=== PATIENT | male | born 1950 | race Hispanic/Latino ===

== ENCOUNTER 2020-01-13 10:24 | Outpatient (CLI) | payer MEDICARE ==
[2020-01-13 11:26] LABS: Blood Urea Nitrogen 22 mg/dL (9-20)
--- NOTE | 2020-01-13 13:41 | Cat Scan Report ---
CT angio abd/femoral abd aorta INDICATION: I87.1Compression of vein. TECHNIQUE: All CT scans at this location are performed using the following dose modulation technique: Automated exposure control. Helical slices were obtained through the abdomen, pelvis, and lower extremities. COMPARISON: None available. FINDINGS: Aorta: The aorta is mildly tortuous. The common iliac arteries are prominent in size and tortuous. Th e right common iliac artery measures 15 mm and the left common iliac artery measures approximately 22 mm. No stenosis is seen in the aorta or iliac arteries. The iliac arteries are tortuous. The common femoral arteries are patent bilaterally. There is mild calcific plaque in both superficial femoral ar teries without hemodynamically significant stenosis. The popliteal arteries are patent. There is no i dentifiable filling of the runoff vessels in either lower extremity. There is calcific plaque through out the 3 runoff vessels bilaterally. Pelvic veins: There is no compression of the inferior vena cava or common iliac artery. The IVC measu res approximately 28 mm in AP dimension. The left common iliac vein measures 2 cm in the right common iliac vein measures 1.8 cm the external iliac arteries are not compressed. There is no extrinsic compression of the common femoral veins are superficial femoral veins. The timing of this study is 4 arterial flow and the venous structures are not opacified ABDOMEN: The imaged portion of the liver, spleen, pancreas, and adrenal glands show no acute abnormal ity. There is a cyst in the right lung with the liver. There is no adenopathy. No acute abnormality is seen in the kidneys or bowel. Pelvis: There are prostatic calcifications. There is no inflammatory change. On review of bone windows, no acute osseous abnormalities are seen. IMPRESSION: 1. 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 There is no extrinsic co mpression of the venous system. The common iliac arteries are dilated with measurements given above. There is tortuosity of the iliac arteries. Signer Name: Estiven Kingston MD Signed: 01/13/2020 1:36 PM Workstation Name: [id number]
== END 2020-01-13 10:25 | disposition home or self-care (01) ==
LOC: CT 10:24
PROVIDERS: ATTEND Radiology Diagnostic Radiology
DX: Q25.46 Tortuous aortic arch (principal); I77.1 Stricture of artery; I70.298 Other atherosclerosis of native arteries of extremities, other extremity
CPT/HCPCS: 36415; 75635; 82565; 84520; Q9967